=== PATIENT | female | born 1970 | race Hispanic/Latino ===

== ENCOUNTER 2020-11-15 16:09 | Emergency (ER) | payer SELFPAY ==
[~2020-11-15 16:09] MED LIST: Iopamidol-370 76% 500 ML 1 ML ONE
[2020-11-15 16:50] LABS: #Eosinphils 0.1 thou/uL (0.0-0.7); #Lymphocytes 2.1 thou/uL (1.20-3.40); #Monocytes 0.7 thou/uL (0.11-0.59); #Neutrophils 7.3 thou/uL (1.40-6.50); %Basophils 0.3 % (0.0-1.0); %Eosinophils 0.8 % (0.0-10.0); %Lymphocytes 20.4 % (21.0-51.0); %Monocytes 6.7 % (0.0-10.0); %Neutrophils 71.9 % (42.0-75.0); Hemoglobin 12.7 g/dL (12.0-16.0); Mean Corpuscular Hemoglobin 29.8 pg (27.0-31.0); Mean Corpuscular Volume 87.5 fL (78.0-98.0); Mean Platelet Volume 8.9 fL (7.4-10.4); Platelet Count 186 thou/uL (130-400); RBC Distribution Width 11.9 % (11.5-14.5); Red Blood Cell (RBC) Count 4.26 mill/uL (4.20-5.40); White Blood Cell (WBC) Count 10.2 thou/uL (4.8-10.8)
[2020-11-15 17:12] LABS: ALT (SGPT) 17 U/L (8-55); AST (SGOT) 16 U/L (5-34); Albumin 3.9 g/dL (3.5-5.0); Alkaline Phosphatase 93 U/L (40-110); Anion Gap 13 mmol/L (10-20); BUN (Urea Nitrogen) 6 mg/dL (7.0-18.7); Bilirubin, Total 0.4 mg/dL (0.2-1.2); Calc. Creatinine Clearance 0 mL/min (70-130); Calcium 8.8 mg/dL (7.8-10.44); Carbon Dioxide 21 mmol/L (22-29); Chloride 105 mmol/L (98-107); Globulin 3.5 g/dL (2.4-3.5); Glucose 98 mg/dL (70-105); Lipase 16 U/L (8-78); Potassium 4.1 mmol/L (3.5-5.1); Protein, Total 7.4 g/dL (6.0-8.3); Sodium 135 mmol/L (136-145)
[2020-11-15] MEDS ORDERED: Piperacillin/Tazobactam 4.5 GM VIAL ONE (19:41)
== END 2020-11-15 20:31 | disposition home or self-care (01) ==
LOC: ERS 16:09
DX: K52.9 Noninfective gastroenteritis and colitis, unspecified (principal)
CPT/HCPCS: 36415; 74177; 80053; 83690; 85025; 96365; J2543; Q9967

== ENCOUNTER 2021-10-13 08:35 | Outpatient (CLI) | payer OTHER | END 2021-10-13 08:36 | disposition home or self-care (01) | LOC: BICULT 08:35 → EDSTATUS 09:00 | PROVIDERS: ATTEND Registered Nurse Community Health | DX: R10.13 Epigastric pain (principal); K80.20 Calculus of gallbladder without cholecystitis without obstruction; K76.0 Fatty (change of) liver, not elsewhere classified | CPT/HCPCS: 76700 ==

== ENCOUNTER 2021-11-01 09:13 | Outpatient (CLI) | payer OTHER | END 2021-11-01 09:14 | disposition home or self-care (01) | LOC: ULT 09:13 | PROVIDERS: ATTEND Registered Nurse Community Health | DX: R10.13 Epigastric pain (principal); K80.20 Calculus of gallbladder without cholecystitis without obstruction | CPT/HCPCS: 76705 ==

== ENCOUNTER 2021-11-21 11:01 | Outpatient (CLI) | payer SELFPAY ==
[2021-11-21 12:43] LABS: #Basophils 0.1 10x3/uL (0.0-0.2); #Monocytes 0.7 10x3/uL (0.0-1.1); #Neutrophils 3.9 10x3/uL (1.5-8.4); %Basophils 0.8 % (0.0-2.0); %Eosinophils 0.2 % (0.0-6.0); %Lymphocytes 26.9 % (18.0-47.0); %Monocytes 11.5 % (0.0-10.0); %Neutrophils 60.3 % (40.0-75.0); Hemoglobin 13.9 g/dL (12.0-15.5); Mean Corpuscular HGB CONC 33.7 g/dL (32.0-36.0); Mean Corpuscular Hemoglobin 28.8 pg (27.0-33.0); Mean Corpuscular Volume 85.3 fl (81.6-98.3); Mean Platelet Volume 10.8 fl (7.4-10.4); Platelet Count 203 10x3/uL (150-450); RBC Distribution Width 12.4 % (11.5-14.5); Red Blood Cell (RBC) Count 4.83 10x6/uL (3.90-5.03); White Blood Cell (WBC) Count 6.5 10x3/uL (3.5-10.5)
[2021-11-21 12:58] LABS: ALT (SGPT) 14 U/L (8-55); AST (SGOT) 20 U/L (5-34); Albumin 4.3 g/dL (3.5-5.0); Alkaline Phosphatase 90 U/L (40-110); Anion Gap 17 mmol/L (10-20); BUN (Urea Nitrogen) 10 mg/dL (7.0-18.7); Bilirubin, Total 0.6 mg/dL (0.2-1.2); Calc. Creatinine Clearance 0 mL/min (70-130); Calcium 9.2 mg/dL (7.8-10.44); Carbon Dioxide 24 mmol/L (22-29); Chloride 102 mmol/L (98-107); Estimated GFR 93; Globulin 3.3 g/dL (2.4-3.5); Glucose 96 mg/dL (70-105); Potassium 4.5 mmol/L (3.5-5.1); Protein, Total 7.6 g/dL (6.0-8.3); Sodium 138 mmol/L (136-145)
== END 2021-11-21 11:02 | disposition home or self-care (01) ==
LOC: LABBT 11:01
PROVIDERS: ATTEND Specialist
DX: Z01.818 Encounter for other preprocedural examination (principal); K80.20 Calculus of gallbladder without cholecystitis without obstruction
CPT/HCPCS: 80053; 85025; 87811; 93005; 93010

== ENCOUNTER 2021-11-22 09:24 | Day surgery (SDC) | payer OTHER ==
[2021-11-21 12:45] VITALS: BMI 24.7
[2021-11-22] MEDS ORDERED: Scopolamine 1.5 mg/72 hour Patch ONE (11:38)
[2021-11-22] MEDS ORDERED: Acetaminophen 500 MG TAB ONE (11:38)
[2021-11-22] MEDS ORDERED: Ketorolac Tromethamine 30 MG/ML VIAL ONE (11:38)
[2021-11-22] MEDS ORDERED: Bupivacaine 0.25% HCL 30 ML VIAL ONE (11:39)
[2021-11-22] MEDS ORDERED: Lidocaine 1% w/Epinephrine 1:100K 20 ML VIAL ONE (11:39)
[2021-11-22] MEDS ORDERED: fentaNYL Citrate/PF 100 MCG/2 ML SYRINGE ONE (12:11)
[2021-11-22] MEDS ORDERED: Promethazine HCl 25 MG/ML VIAL ONE (12:11)
== END 2021-11-22 12:17 | disposition home or self-care (01) ==
LOC: SDC 09:24
PROVIDERS: ATTEND Specialist
DX: K80.20 Calculus of gallbladder without cholecystitis without obstruction (principal); U07.1 COVID-19; Z53.09 Procedure and treatment not carried out because of other contraindication; Z79.899 Other long term (current) drug therapy
CPT/HCPCS: J1610; J1885; J2550; S0020

== ENCOUNTER 2021-12-06 05:59 | Day surgery (SDC) | payer OTHER ==
[2021-12-05 10:12] VITALS: BMI 24.7
[2021-12-06] MEDS ORDERED: Ketorolac Tromethamine 30 MG/ML VIAL ONE (06:19)
[2021-12-06] MEDS ORDERED: Scopolamine 1.5 mg/72 hour Patch ONE (06:19)
[2021-12-06] MEDS ORDERED: Acetaminophen 500 MG TAB ONE (06:19)
[2021-12-06] MEDS ORDERED: Lidocaine 2% 6 ML SYR ONE (06:34)
[2021-12-06] MEDS ORDERED: Midazolam HCl 2 mg/2 ml Vial ONE (06:34)
[2021-12-06] MEDS ORDERED: fentaNYL Citrate/PF 100 MCG/2 ML SYRINGE ONE (06:34)
[2021-12-06] MEDS ORDERED: SUGAMMADEX SODIUM 200 MG/2 ML VIAL ONE (06:35)
[2021-12-06] MEDS ORDERED: Bupivacaine/Epinephrine 0.25% 30 ML VIAL ONE (06:52)
[2021-12-06] MEDS ORDERED: CEFAZOLIN 2 GM VIAL ONE (07:21)
[2021-12-06] MEDS ORDERED: Sodium Chloride 0.9% 100 ML ONE (07:21)
[2021-12-06] MEDS ORDERED: Meperidine HCl/PF 25 MG/ML VIAL ONE (08:42)
[2021-12-06] MEDS ORDERED: PROPOFOL 200 MG/20 ML VIAL ONE (10:43)
[2021-12-06] MEDS ORDERED: Dexamethasone 20 MG/5 ML VIAL ONE (10:43)
[2021-12-06] MEDS ORDERED: Glycopyrrolate 0.2 MG/ML 5 ML SYRINGE ONE (10:43)
[2021-12-06] MEDS ORDERED: Lidocaine 1% PF 5 ML VIAL ONE (10:43)
[2021-12-06] MEDS ORDERED: Ondansetron PF 4 MG/2 ML Vial ONE (10:43)
[2021-12-06] MEDS ORDERED: Rocuronium Bromide 10 MG/ML (10ML VIAL) ONE (10:43)
== END 2021-12-06 10:30 | disposition home or self-care (01) ==
LOC: SDC 05:59
PROVIDERS: ATTEND Specialist
PROC: 0FT44ZZ Resection of Gallbladder, Percutaneous Endoscopic Approach (ICD-10-PCS; principal; 2021-12-06)
DX: K80.10 Calculus of gallbladder with chronic cholecystitis without obstruction (principal); U07.1 COVID-19; K76.0 Fatty (change of) liver, not elsewhere classified; Z79.899 Other long term (current) drug therapy
CPT/HCPCS: 88304; C1713; J0690; J1100; J1885; J2175; J2250; J2405; J2704; J3490